=== PATIENT | female | born 1965 | race Caucasian/White ===

== ENCOUNTER 2019-04-15 15:59 | Emergency (ER) | payer OTHER ==
--- NOTE | 2019-04-15 18:06 | ED ---
Influenza-Like Illness - HPI Summary HPI Summary: Patient complains of flulike symptoms, subjective fever, productive cough, body aches, generalized weakness starting last night. Denies ear pain, nasal discharge, headache, sore throat, CP, SOB, N/3/D, abdominal pain, change in urine, change in BM. Medical history is none. Positive smoker. - History of Current Complaint Chief Complaint: EDFluSymptoms Time Seen by Provider: 04/15/19 17:52 Hx Obtained From: Patient Onset/Duration: Sudden Onset, Lasting Hours Severity: Moderate Associated Signs & Symptoms: Fever, Myalgia, Cough - Allergy/Home Medications Allergies/Adverse Reactions: Allergies Allergy/AdvReac Type Severity Reaction Status Date / Time Sulfa (Sulfonamide Allergy Anaphylatic Verified 04/15/19 16:05 Antibiotics) Shock PMH/Surg Hx/FS Hx/Imm Hx Endocrine/Hematology History: Denies: Hx Anticoagulant Therapy Cardiovascular History: Denies: Hx Pacemaker/ICD History: Denies: Hx Dialysis Sensory History: Denies: Hx Eye Prosthesis Opthamlomology History: Denies: Hx Legally Blind EENT History: Denies: Hx Deafness Neurological History: Denies: Hx Dementia Infectious Disease History: No Infectious Disease History: Denies: Traveled Outside the [place] in Last 30 Days - Family History Known Family History: Positive: Non-Contributory - Social History Alcohol Use: Occasionally Hx Substance Use: No Hx Tobacco Use: Yes Review of Systems Positive: Fever Eyes: Negative ENT: Negative Cardiovascular: Negative Positive: Cough Gastrointestinal: Negative Genitourinary: Negative Positive: Myalgia Skin: Negative Positive: Weakness Psychological: Normal All Other Systems Reviewed And Are Negative: Yes Physical Exam Triage Information Reviewed: Yes Vital Signs On Initial Exam: Initial Vitals Temp Pulse Resp BP Pulse Ox 100.5 F 93 20 161/71 94 04/15/19 16:02 04/15/19 16:02 04/15/19 16:02 04/15/19 16:02 04/15/19 16:02 Vital Signs Reviewed: Yes Appearance: Positive: Well-Appearing Skin: Positive: Warm Head/Face: Positive: Normal Head/Face Inspection Eyes: Positive: Normal ENT: Positive: Normal ENT inspection Neck: Positive: Supple Respiratory/Lung Sounds: Positive: Wheezes Cardiovascular: Positive: Normal Abdomen Description: Positive: Nontender Musculoskeletal: Positive: Normal Neurological: Positive: Normal Psychiatric: Positive: Normal AVPU Assessment: Alert - [place] Coma Scale Best Eye Response: 4 - Spontaneous Best Motor Response: 6 - Obeys Commands Best Verbal Response: 5 - Oriented Coma Scale Total: 15 Procedures - Sedation Patient Received Moderate/Deep Sedation with Procedure: No Diagnostics - Vital Signs Vital Signs Temp Pulse Resp BP Pulse Ox 04/15/19 16:02 100.5 F 93 20 161/71 94 - Laboratory Result Diagrams: 04/15/19 18:43 04/15/19 18:43 Lab Statement: Any lab studies that have been ordered have been reviewed, and results considered in the medical decision making process. Flu Symptom Course/Dx - Course Course Of Treatment: Patient complains of flulike symptoms, subjective fever, productive cough, body aches, generalized weakness starting last night. Denies ear pain, nasal discharge, headache, sore throat, CP, SOB, N/3/D, abdominal pain , change in urine, change in BM. Medical history is none. Positive smoker. Temperature 100.5. Vital signs otherwise within normal limits. CRP 58. Labs otherwise unremarkable. Positive for flu a. - Diagnoses Provider Diagnoses: Flu Discharge ED - Sign-Out/Discharge Documenting (check all that apply): Patient Departure - Discharge Plan Condition: Stable Disposition: HOME Prescriptions: Benzonatate CAP* [Tessalon 100 MG CAP*] 200 mg PO TID 6 Days #40 cap guaiFENesin/CODIENE 100mg/10mg [Robitussin AC 100Mg/10Mg in 5 ml] 10 ml PO Q4H PRN 2 Days #120 udc MDD 60 ml PRN Reason: Cough Oseltamivir CAP* [Tamiflu CAP*] 75 mg PO BID 5 Days #10 cap predniSONE TAB* [Deltasone 20 MG TAB*] 40 mg PO DAILY 5 Days #10 tab Patient Education Materials: Influenza (ED) Forms: *Work Release Referrals: Elena STEVENSON,Cody Hannon [Primary Care Provider] - Additional Instructions: Take Tamiflu as directed for 5 days. Use Tessalon Perles during the day for cough. Take Robitussin with codeine at night for cough. Alternate ibuprofen 600 mg with Tylenol 650 mg every 3 hours for fever and body aches. Drink plenty of fluids to maintain hydration. Follow-up with primary care. Return to the ED for any new or worsening symptoms. - Billing Disposition and Condition Condition: STABLE Disposition: Home
[2019-04-15 19:00] LABS: ABS Lymphocytes 0.5 10^3/ul (1.0-4.8); ABS Monocytes 0.4 10^3/ul (0-0.8); ABS Neutrophils 5.4 10^3/ul (1.5-7.7); Hematocrit 40 % (35-47); Hemoglobin 13.5 g/dL (12.0-16.0); Lymphocyte % 8.1 %; Mean Corpuscular HGB Conc 34 g/dL (31-36); Mean Corpuscular Hemoglobin 31 pg (27-31); Mean Corpuscular Volume 90 fL (80-97); Mean Platelet Volume 7.9 fL (7.4-10.4); Platelet Count 180 10^3/uL (150-450); Red Blood Count 4.41 10^6 /uL (3.70-4.87); Red Cell Distribution Width 13 % (10-15); White Blood Count 6.3 10^3/uL (3.5-10.8)
[2019-04-15 19:11] LABS: Albumin 4.3 g/dL (3.2-5.2); Albumin/Globulin Ratio 1.8 (1-3); BUN/Creatinine Ratio 16.7 (8-20); C Reactive Protein 58.11 mg/L (<8.01); Calcium 9.9 mg/dL (8.6-10.3); EGFR African American 112.9 (>60); EGFR Non-African American 93.3 (>60); Globulin 2.4 g/dL (2-4); Potassium 3.9 mmol/L (3.5-5.0); Total Bilirubin 0.4 mg/dL (0.2-1.0); Total Protein 6.7 g/dL (6.4-8.9)
[2019-04-15] MEDS ORDERED: Benzonatate CAP* 100 MG PO ONE (19:16)
[2019-04-15] MEDS ORDERED: predniSONE TAB* 20 MG PO ONE (19:16)
[2019-04-15] MEDS ORDERED: Albuterol/Ipratropium NEB.SOL* Albuterol 2.5 MG/Ipratropium 0.5 MG 3 ML INH ONE (19:16)
[2019-04-15] MEDS ORDERED: Acetaminophen TAB* 325 MG PO ONE (19:18)
[2019-04-15 19:46] LABS: Urine Appearance Cloudy; Urine Bilirubin Negative (Negative); Urine Blood Negative (Negative); Urine Color Yellow; Urine Glucose Negative (Negative); Urine Ketones Negative (Negative); Urine Nitrite Negative (Negative); Urine Protein 1+(30 mg/dL) (Negative); Urine Specific Gravity 1.025 (1.010-1.030); Urine Urobilinogen Negative (Negative)
[2019-04-15 19:52] LABS: Influenza A Molecular POSITIVE (Negative)
[2019-04-15] MEDS ORDERED: Oseltamivir CAP* 75 MG CAP PO ONE (19:55)
[2019-04-15 20:04] LABS: Urine Bacteria 1+ (Absent); Urine Red Blood Cell Trace(0-2/hpf) (Absent); Urine Squamous Epithelial Cell Present (Absent); Urine White Blood Cell Absent (Absent)
[2019-04-15 20:29] VITALS: BP 142/86
== END 2019-04-15 20:22 | disposition home or self-care (01) ==
LOC: ED 15:59
DX: J10.1 Influenza due to other identified influenza virus with other respiratory manifestations (principal); Z88.2 Allergy status to sulfonamides
CPT/HCPCS: 36415; 71046; 80053; 81003; 81015; 83605; 85025; 86140; 87040; 87086; 99283; A9270-GY; J7512